=== PATIENT | male | born 1940 | race Caucasian/White ===

== ENCOUNTER → 2018-02-28 | Outpatient (CLI) | payer OTHER | LOC: BHFA 09:15 | PROVIDERS: ATTEND Physician Assistant Medical | DX: Z01.810 Encounter for preprocedural cardiovascular examination (principal); I35.1 Nonrheumatic aortic (valve) insufficiency ==

== ENCOUNTER → 2018-03-01 | Outpatient (CLI) | payer OTHER | LOC: BHFA 14:45 | PROVIDERS: ATTEND Internal Medicine Interventional Cardiology | DX: R01.1 Cardiac murmur, unspecified (principal) ==

== ENCOUNTER 2018-11-15 18:51 | Emergency (ER) | payer OTHER ==
[2018-11-15 19:58] LABS: PLATELET COUNT 233 10^3/uL (150-400)
[2018-11-15] MEDS ORDERED: IPRATROPIUM/ALBUTEROL 3 ML DEYVIAL IH ONE (20:00)
[2018-11-15] MEDS ORDERED: BENZONATATE 100 MG CAP PO ONE (20:01)
[2018-11-15 20:06] VITALS: BP 134/87
--- NOTE | 2018-11-15 20:06 | EDPHY ---
H & P Time Seen by Provider: 11/15/18 19:26 HPI/ROS: HPI Cough, shortness of breath. 78-year-old male by private vehicle from Urgent Care. This patient reports that he has had a sinus infection for the last week and a half. This then migrated down into his chest. He reports having a worsening cough over the last 5 days. He reports that he had a similar condition to this and developed pneumonia about 10 years ago and almost from it. He reports that the cough has been productive of dark green sputum. He denies fever. He denies shortness of breath at rest when he is not coughing. ROS: Constitutional: No fever, no chills. As above. Eyes: No discharge. No changes in vision. ENT: No sore throat. No nasal congestion or rhinorrhea. Respiratory: As above. Cardiac: No chest pain, no palpitations. Gastrointestinal: No abdominal pain, no vomiting, no diarrhea. Genitourinary: No hematuria. No dysuria or increased frequency with urination. Musculoskeletal: No back pain. No neck pain. No myalgias or arthralgias. Skin: No rashes. Neurological: No headache. No focal weakness or altered sensation. Past medical history: Melanoma, knee surgery, back surgery, abdominal surgery, hypothyroid. Social history: Nonsmoker. He currently lives alone. Drinks alcohol socially. Physical Exam: General Appearance: Alert, he is not in distress, intermittent hacking cough. This patient is responding to questions appropriately and in full sentences. This patient appears well-hydrated and well-nourished. Eyes: Pupils equal and round no pallor or injection. No lid edema, erythema or injection. Respiratory: There are no retractions, intermittent hacking cough, he has scant rhonchi the mid lung barriga, moderate air movement, no tachypnea. Cardiovascular: Regular rate and rhythm. No murmur. Gastrointestinal: Abdomen is soft and nontender, no masses, bowel sounds normal. No focal tenderness at McBurney's point. No [place] sign. Neurological: Motor sensory function is grossly intact. Cranial nerves are normal. Gait is normal. Skin: Warm and dry, no rashes. Musculoskeletal: Neck is supple and nontender. Extremities are symmetrical. All joints range without pain or impingement. Psychiatric: No agitation. No depression. Database: EKG: EKG time is 8:00 p.m.; EKG shows a narrow complex normal sinus rhythm with a ventricular rate of 87. The CO, QRS, QT intervals are within normal limits. There are no ST-T wave changes indicative of ischemic or injury pattern. No evidence of right heart strain. Interpreted by me. Imaging: Chest x-ray PA and lateral; the cardiac mediastinal silhouette is unremarkable. Possible left perihilar infiltrate. No pneumothorax. Findings consistent with bronchitis. No other acute cardiopulmonary disease process noted. Interpreted by me. Procedures: Emergency department course: Triage vital signs reviewed, he is moderately hypertensive. Vital signs are otherwise normal. He is afebrile. IV was placed. He was placed on a clinical data associate. He will be given albuterol/Atrovent nebulizer treatment. He will be given Tessalon parole. EKG obtained and reviewed by myself. Chest x-ray to be obtained. Respiratory pathogen panel to be obtained. 9:05 p.m., the patient was re-evaluated, he is resting comfortably at this time. Room air pulse oximetry is currently 95%. Blood pressure 134/70. He is afebrile. Results of his diagnostic workup discussed with him. His chest x- ray demonstrates a bronchitis. Possibly an early infiltrate left perihilar. He feels comfortable going home at this time. Secondary to his previous history as well as his age I will start him on Levaquin in the emergency department. He was given 750 mg of this orally. He will be discharged with a prescription for 6 more days. He has been instructed follow up with his primary care physician for re-evaluation if possible tomorrow if not on Monday. Return to emergency department precautions were thoroughly reviewed with him. He can return to the emergency department easily should his condition worsen. All of his questions were answered. He was discharged from the emergency department in good condition. Differential Diagnosis: The differential diagnosis on this patient includes but is not limited to pneumonia, CHF, viral bronchitis, influenza. This represents a partial list of diagnoses considered. These considerations are based on history, physical exam , past history, reassessment and diagnostic testing. Smoking Status: Never smoked Constitutional: Initial Vital Signs Temperature (C) 36.6 C 11/15/18 18:59 Heart Rate 85 11/15/18 18:59 Respiratory Rate 16 11/15/18 18:59 Blood Pressure 155/85 H 11/15/18 18:59 O2 Sat (%) 94 11/15/18 18:59 O2 Delivery Mode Room Air Allergies/Adverse Reactions: codeine Allergy (Verified 11/15/18 18:59) Home Medications: Medication Instructions Recorded Multivitamin 07/17/14 Aspirin 11/15/18 levOFLOXACIN [levAQUIN (*)] 750 mg PO DAILY #6 tab 11/15/18 Medical Decision Making - Data Points Laboratory Results: Laboratory Results 11/15/18 19:45 11/15/18 19:45 11/15/18 11/15/18 11/15/18 19:58 19:45 19:45 WBC 8.12 10^3/uL 10^3/uL (3.80-9.50) RBC 4.64 10^6/uL 10^6/uL (4.40-6.38) Hgb 14.1 g/dL g/dL (13.7-17.5) Hct 41.9 % % (40.0-51.0) MCV 90.3 fL fL (81.5-99.8) MCH 30.4 pg pg (27.9-34.1) MCHC 33.7 g/dL g/dL (32.4-36.7) RDW 13.3 % % (11.5-15.2) Plt Count 233 10^3/uL 10^3/uL (150-400) MPV 9.2 fL fL (8.7-11.7) Neut % (Auto) 56.3 % % (39.3-74.2) Lymph % (Auto) 24.6 % % (15.0-45.0) [place] % (Auto) 12.3 % % (4.5-13.0) Eos % (Auto) 5.4 % % (0.6-7.6) Baso % (Auto) 1.0 % % (0.3-1.7) Nucleat RBC Rel Count 0.0 % % (0.0-0.2) Absolute Neuts (auto) 4.57 10^3/uL 10^3/uL (1.70-6.50) Absolute Lymphs (auto) 2.00 10^3/uL 10^3/uL (1.00-3.00) Absolute Monos (auto) 1.00 10^3/uL H 10^3/uL (0.30-0.80) Absolute Eos (auto) 0.44 10^3/uL H 10^3/uL (0.03-0.40) Absolute Basos (auto) 0.08 10^3/uL 10^3/uL (0.02-0.10) Absolute Nucleated RBC 0.00 10^3/uL 10^3/uL (0-0.01) Immature Gran % 0.4 % % (0.0-1.1) Immature Gran # 0.03 10^3/uL 10^3/uL (0.00-0.10) Sodium 135 mEq/L mEq/L (135-145) Potassium 4.3 mEq/L mEq/L (3.5-5.2) Chloride 101 mEq/L mEq/L (97-110) Carbon Dioxide 25 mEq/l mEq/l (22-31) Anion Gap 9 mEq/L mEq/L (6-14) BUN 21 mg/dL mg/dL (7-23) Creatinine 1.3 mg/dL mg/dL (0.7-1.3) Estimated GFR 54 Glucose 96 mg/dL mg/dL (70-100) Calcium 9.4 mg/dL mg/dL (8.5-10.4) POC Troponin I 0.00 ng/mL ng/mL (0.00-0.08) NT-Pro-B Natriuret Pep 275 pg/mL pg/mL (0-450) Medications Given: Discontinued Medications Albuterol/Ipratropium (Duoneb) 3 ml IH EDNOW ONE Stop: 11/15/18 20:01 Last Admin: 11/15/18 20:12 Dose: 3 ml Benzonatate (Tessalon Pearles) 200 mg PO EDNOW ONE Stop: 11/15/18 20:02 Last Admin: 11/15/18 20:12 Dose: 200 mg Point of Care Test Results: Chemistry 11/15/18 19:58 POC Troponin I 0.00 ng/mL ng/mL (0.00-0.08) Departure - Departure Disposition: Home, Routine, Self-Care Clinical Impression: Bronchitis, Possible early pneumonia Condition: Good Instructions: Acute Bronchitis (ED) Additional Instructions: Read and follow provided instructions. Follow-up with your primary care physician tomorrow if possible if not on Monday for re-evaluation. Take antibiotic as prescribed through entire course of treatment. Albuterol meter dose inhaler: 1-2 puffs every 2-4 hours as needed for cough and shortness of breath. You can take [id number] cough and cold remedies such as Robitussin or NyQuil as directed at night to help you sleep. Return to the emergency department for worsening cough, shortness of breath, difficulty breathing or other serious concerns. Referrals: Yolette Mckeon PA [Primary Care Provider] - As per Instructions Prescriptions: levOFLOXACIN [levAQUIN (*)] 750 mg PO DAILY #6 tab
[2018-11-15] MEDS ORDERED: ALBUTEROL INH PREPACK MDI TAKEHOME ONE (21:16)
--- NOTE | 2018-11-15 22:40 | CPEKG ---
Test Reason : OPEN Blood Pressure : / mmHG Vent. Rate : 087 BPM Atrial Rate : 088 BPM P-R Int : 152 ms QRS Dur : 089 ms QT Int : 355 ms P-R-T Axes : 036 -36 038 degrees QTc Int : 427 ms Sinus rhythm Left axis deviation Confirmed by Heather Calix ([id number] on 11/15/2018 10:39:39 PM Referred By: Heather Calix Confirmed By:Heather Calix
== END 2018-11-15 21:30 | disposition home or self-care (01) ==
DX: J40 Bronchitis, not specified as acute or chronic (principal); Z87.01 Personal history of pneumonia (recurrent)
CPT/HCPCS: 84484-ER

== ENCOUNTER → 2018-11-23 | Outpatient (CLI) | payer OTHER ==
--- NOTE | 2018-11-26 14:13 | CPEEG ---
[f rep st] ELECTROENCEPHALOGRAM DATE OF STUDY: 11/23/2018 DATE OF INTERPRETATION: 11/26/2018 INTERPRETATION: Normal EEG during wakefulness and partial sleep. There were no potentially epilepto genic abnormalities present during the awake or partial sleep recordings. REPORT: This EEG contains 10 Hz alpha activity over the posterior head regions. There was no abnorm al activation at rest, during photic stimulation or hyperventilation. The patient intermittently bec sid drowsy and fell into light sleep during the recording. There was no abnormal activation during d rowsiness, light sleep or during times of arousal. /[id number]/MODL
== END ==
LOC: FCPNEURO 13:09
PROVIDERS: ATTEND Psychiatry & Neurology Neurology
DX: R41.3 Other amnesia (principal); R29.818 Other symptoms and signs involving the nervous system

== ENCOUNTER → 2018-11-25 | Outpatient (CLI) | payer OTHER | LOC: FIMAGING 11:28 | PROVIDERS: ATTEND Psychiatry & Neurology Neurology | DX: R29.818 Other symptoms and signs involving the nervous system (principal); R41.3 Other amnesia ==

== ENCOUNTER → 2019-01-25 | Outpatient (CLI) | payer OTHER | LOC: BMCIMAGING 16:10 | PROVIDERS: ATTEND Nurse Practitioner Family | DX: R05 Cough (principal) ==